=== PATIENT | female | born 2000 | race Caucasian/White ===

== ENCOUNTER 2022-07-15 10:01 | Emergency (ER) | payer OTHER ==
[~2022-07-15] VITALS: Ht 167.6 cm; Wt 81.4 kg
[~2022-07-15 10:01] MED LIST: IBUPROFEN400 MG PO
== END 2022-07-15 12:41 | disposition home or self-care (01) ==
LOC: ED 10:01
DX: O20.0 Threatened abortion (principal); Z3A.15 15 weeks gestation of pregnancy
CPT/HCPCS: 36415; 76815; 80053; 81001; 85025; 86900; 86901; 87210; 87491; 99284-25; J7030

== ENCOUNTER 2023-10-23 12:20 | Inpatient (IN) | payer OTHER ==
[~2023-10-23] VITALS: Ht 167.6 cm; Wt 102.1 kg
[2023-10-23 14:22] VITALS: BP 128/65
[2023-10-23 14:52] LABS: HEMATOCRIT 38.1 % (35.0-50.0); HEMOGLOBIN 13.2 g/dL (12.0-18.0); MCH 31.7 (27-36); MCHC 34.6 g/dl (30-36); MCV 91.6 fl (81-99); RBC 4.17 M/ul (4.3-5.7); RDW 13.7 (10.5-15.0)
[2023-10-23 15:34] LABS: AMPHETAMINES, URINE NEGATIVE (NEGATIVE); BARBITURATES, URINE NEGATIVE (NEGATIVE); BENZODIAZEPINE, URINE NEGATIVE (NEGATIVE); BUPRENORPHINE, URINE NEGATIVE (NEGATIVE); CANNABINOID, URINE NEGATIVE (NEGATIVE); COCAINE, URINE NEGATIVE (NEGATIVE); ECSTASY, URINE NEGATIVE (NEGATIVE); FENTANYL, URINE NEGATIVE (NEGATIVE); METHADONE, URINE NEGATIVE (NEGATIVE); OPIATES, URINE NEGATIVE (NEGATIVE); OXYCODONE, URINE NEGATIVE (NEGATIVE); PHENCYCLIDINE, URINE NEGATIVE (NEGATIVE)
[2023-10-23 15:43] LABS: ABO A; ANTIBODY SCREEN NEGATIVE; RH POSITIVE
[2023-10-24 05:30] LABS: HEMATOCRIT 33.7 % (35.0-50.0); HEMOGLOBIN 11.5 g/dL (12.0-18.0); MCH 31.8 (27-36); MCV 93.4 fl (81-99); RBC 3.61 M/ul (4.3-5.7); RDW 13.7 (10.5-15.0)
--- NOTE | 2023-10-24 07:19 | PR ---
[facility] [address] [place] [address] Signed PP Progress Notes Datetime Report Generated by BRUNO: 10/24/2023 07:19 SUBJECTIVE: [id number] Pain: Within Normal Limits Vital Signs: [id number] Vital Signs: Reviewed; Within Normal Limits Cardiovascular: Not Done Respiratory: Not Done Abdomen/Uterus: Abnormal Lochia: Normal Vulva/Perineum: Not Done Breasts: Not Done CVA Tenderness: Not Done Extremities: Normal Incision: Not Applicable Progress: Abnormal Exam Comments: Fundus firm, NT @ U-1. H/H 11.5/33.7, WBC 10.9, plat 181k IMPRESSION/PLAN/PROCEDURES: [id number] Impression: Difficulties Plan: Continue Present Management Progress Notes: Doing well other than breast feeding. Will work on this today with probable discharge in the morning. Signing Physician: Carly Poole MD Copies: ~ *Electronically Signed* 10/24/23718 CARLY POOLE MD PATIENT NAME: ELEANOR HUYNH PROGRESS NOTE DATE OF : 89 PHYSICIAN: CARLY POOLE MD RPT #: [id number] REPORT IS CONFIDENTIAL AND NOT TO BE RELEASED WITHOUT AUTHORIZATION
--- NOTE | 2023-10-25 07:22 | PR ---
[facility] [address] [facility] [place] [address] Signed PP Progress Notes Datetime Report Generated by BRUNO: 10/25/2023 07:22 SUBJECTIVE: [id number] Pain: Within Normal Limits Vital Signs: [id number] Vital Signs: Reviewed; Within Normal Limits Cardiovascular: Not Done Respiratory: Not Done Abdomen/Uterus: Abnormal Lochia: Normal Vulva/Perineum: Not Done Breasts: Not Done CVA Tenderness: Not Done Extremities: Normal Incision: Not Applicable Progress: Abnormal Exam Comments: Fundus firm, NT @ U-2. IMPRESSION/PLAN/PROCEDURES: [id number] Impression: Normal Progression; Difficulties Plan: Discharge Procedures: Rub[place] Progress Notes: Doing well except for breast feeding. She will need to be discharged, however. Hopefully, consult can be accomplished today. Signing Physician: Carly Poole MD Copies: ~ *Electronically Signed* 10/25/23721 CARLY POOLE MD PATIENT NAME: ELEANOR HUYNH PROGRESS NOTE DATE OF : 99 PHYSICIAN: CARLY POOLE MD RPT #: [id number] REPORT IS CONFIDENTIAL AND NOT TO BE RELEASED WITHOUT AUTHORIZATION
--- NOTE | 2023-10-25 09:24 | NUR ---
ROUNDS. PT IN BED WITH BABY; FATHER AT BEDSIDE. PT ADMITTED TO SOME ANXIETY AROUND BREAST FEEDING. LISTENED EMPATHETICALLY; REFRAMED EXPERIENCE; EXPLORED HOPE. PT DECLINED PRAYER IN ROOM. PROVIDED SILENT PRAYER ON BEHALF OF BABY AND FAMILY.
== END 2023-10-25 13:25 | disposition home or self-care (01) | DRG 807 ==
LOC: FBCO 12:20 → FBC 14:12
PROVIDERS: ADMIT Obstetrics & Gynecology; ATTEND Obstetrics & Gynecology
PROC: 10E0XZZ Delivery of Products of Conception, External Approach (ICD-10-PCS; principal; 2023-10-23)
PROC: 10D17Z9 Manual Extraction of Products of Conception, Retained, Via Natural or Artificial Opening (ICD-10-PCS; 2023-10-23)
PROC: 0KQM0ZZ Repair Perineum Muscle, Open Approach (ICD-10-PCS; 2023-10-23)
PROC: 3E0R3BZ Introduction of Anesthetic Agent into Spinal Canal, Percutaneous Approach (ICD-10-PCS; 2023-10-23)
PROC: 00HU33Z Insertion of Infusion Device into Spinal Canal, Percutaneous Approach (ICD-10-PCS; 2023-10-23)
DX: O99.334 Smoking (tobacco) complicating childbirth (principal); Z37.0 Single live birth; O70.1 Second degree perineal laceration during delivery; Z3A.37 37 weeks gestation of pregnancy; F17.210 Nicotine dependence, cigarettes, uncomplicated
CPT/HCPCS: 01960; 36415; 59025; 80307; 85027; 86850; 86900; 86901; 90707; A9270; G0463; J2590; J2795; J3010; J7121

== ENCOUNTER 2024-06-13 12:07 | Emergency (ER) | payer OTHER ==
[~2024-06-13] VITALS: Ht 182.9 cm; Wt 90.6 kg
[2024-06-13] MEDS ORDERED: DIPHTH,PERTUSS(ACELL),TET VAC 0.5 ML SYRINGE IM ONE (12:45)
[2024-06-13 13:09] VITALS: BP 145/85
== END 2024-06-13 13:10 | disposition home or self-care (01) ==
LOC: ED 12:07
DX: S61.412A Laceration without foreign body of left hand, initial encounter (principal); F17.200 Nicotine dependence, unspecified, uncomplicated; W26.9XXA Contact with unspecified sharp object(s), initial encounter
CPT/HCPCS: 90471; 90715; 99282-25